=== PATIENT | female | born 1970 | race Caucasian/White ===

== ENCOUNTER 2020-06-18 14:48 | Inpatient (IN) | payer OTHER ==
[~2020-06-18] VITALS: Ht 152.4 cm; Wt 92.7 kg
[2020-06-18 14:52] VITALS: BP 136/88
[2020-06-18 16:51] LABS: CALCIUM 8.4 mg/dL (8.5-10.1); CREATININE 0.8 mg/dL (0.6-1.3); HEMATOCRIT 43.9 % (37.0-47.0); HEMOGLOBIN 14.9 gm/dL (12.0-15.0); MCH 30.2 pg (26.0-34.0); MCHC 33.9 g/dL (28.0-37.0); MCV 89.1 fL (80.0-100.0); MPV 8.1 fl. (7.2-11.1); NUCLEATED RBCS 0 /100WBC; PLATELET COUNT* 322 thou/uL (150-400); POTASSIUM 3.9 mmol/L (3.5-5.1); RBC 4.93 mil/uL (4.20-5.00); WBC 18.9 thou/uL (4.0-11.0)
[2020-06-18 16:56] LABS: ALBUMIN 3.4 g/dL (3.4-5.0); TOTAL BILIRUBIN 0.3 mg/dL (<0.1-1.0); TOTAL PROTEIN 7.5 g/dL (6.4-8.2)
[2020-06-18 17:30] VITALS: BP 127/97
[2020-06-18 17:30] LABS: ABSOLUTE LYMPHOCYTES 2.6 thou/uL (0.8-5.3); ABSOLUTE NEUTROPHILS 16.3 thou/uL (1.6-8.1); PLATELET ESTIMATE ADEQUATE
[2020-06-18 17:50] VITALS: BP 141/86
[2020-06-18 19:51] VITALS: BP 129/84
[2020-06-19 05:04] VITALS: BP 129/84
[2020-06-19 08:40] VITALS: BP 132/82
[2020-06-19 16:00] VITALS: BP 124/86
[2020-06-19 16:55] VITALS: BP 142/78
[2020-06-19 20:30] VITALS: BP 134/74
[2020-06-20 03:05] LABS: GLYCOHEMOGLOBIN (HGB A1C) 8.5 % (4.8-5.6)
[2020-06-20 04:03] LABS: HEMATOCRIT 38.7 % (37.0-47.0); MCH 29.9 pg (26.0-34.0); MCV 90.6 fL (80.0-100.0); RBC 4.28 mil/uL (4.20-5.00); RDW-CV 12.8 % (10.5-14.5); WBC 17.5 thou/uL (4.0-11.0)
[2020-06-20 04:25] LABS: HEMOGLOBIN 12.8 gm/dL (12.0-15.0)
[2020-06-20 04:30] VITALS: BP 165/79
[2020-06-20 04:31] LABS: CALCIUM 8.3 mg/dL (8.5-10.1); CREATININE 0.7 mg/dL (0.6-1.3); MAGNESIUM 1.9 mg/dL (1.8-2.4); POTASSIUM 3.9 mmol/L (3.5-5.1)
[2020-06-20 07:20] VITALS: BP 135/78
[2020-06-20 13:10] VITALS: BP 132/78
[2020-06-20 16:21] VITALS: BP 124/73
[2020-06-20 19:40] VITALS: BP 148/70
[2020-06-21] VITALS (8 sets, daily range): BP systolic 106–145; BP diastolic 79–94
[2020-06-21] MEDS ORDERED: ELIQUIS2.5 MG PO ×2 (06:47→07:28)
[2020-06-21] MEDS ORDERED: VITAMIN D3-CAL1 EACH PO (07:29)
[2020-06-21] MEDS ORDERED: OXYCODONE HCL 55 MG PO (07:49)
[2020-06-21] MEDS ORDERED: GLUCOPHAGE500 MG PO (07:49)
[2020-06-21] MEDS ORDERED: GLUCOPHAGE850 MG PO (07:51)
[2020-06-21] MEDS ORDERED: FREESTYLE LANC1 EACH MISCELL (07:56)
[2020-06-21] MEDS ORDERED: HUMULINR100 SUBQ (07:56)
[2020-06-21] MEDS ORDERED: INSULIN SYRING1 EA13 SUBQ (07:56)
--- NOTE | 2020-06-21 11:28 | EKG ---
[place] [address] ELECTROCARDIOGRAM REPORT Name: GURDEEP GIORDANO Room: [address] ADM IN ..#: [id number] Admission: 06/18/20 Attend Phys: Neftali Salazar, Discharge: Date of : 70 Date of Service: 06/18/20 1709 Report #: [id number] THIS REPORT FOR: //name// [facility] ED Test Date: 2020-06-18 Test Time: 17:09:34 Pat Name: GURDEEP GIORDANO Department: Room: [facility] Gender: F Clinic Charge Nurse: : 1970 Requested By: Luisito Fernandez Order Number: [id number] MD: Chico Becerra Measurements Intervals [place] Rate: 98 P: 45 ME: 177 QRS: 3 QRSD: 97 T: 16 QT: 365 QTc: 467 Interpretive Statements Sinus rhythm Probable left atrial enlargement No previous ECG available for comparison Electronically Signed On 06-21-2020 11:28:32 CONTACT CENTER ASSOCIATE by Chico Becerra [email or web address] <ELECTRONICALLY SIGNED> By: Chico Becerra MD, [facility] 06/21/20 1128 1709 08 Chico Becerra MD, FAC /EPI
[2020-06-22] VITALS: BP 112/61
[2020-06-22 04:00] VITALS: BP 124/68
[2020-06-22 08:30] VITALS: BP 122/65
[2020-06-22 09:42] LABS: CALCIUM 8.3 mg/dL (8.5-10.1); CREATININE 0.7 mg/dL (0.6-1.3); MAGNESIUM 1.8 mg/dL (1.8-2.4); POTASSIUM 3.5 mmol/L (3.5-5.1)
[2020-06-22 12:33] VITALS: BP 134/77
--- NOTE | 2020-06-22 12:56 | CON ---
[address] [address] CONSULTATION Name: GURDEEP GIORDANO Room: [address] IN .R.#: [id number] Admission: 06/18/20 Attend Phys: Neftali Salazar MD Discharge: Date of : 70 Report #: [id number] THIS REPORT FOR: //name// cc: Rizwana Bender MD, Ghazal A. MD ~ CARDIOLOGY CONSULTATION INDICATION: New onset atrial fibrillation. HISTORY OF PRESENT ILLNESS: The patient is a very pleasant 49-year-old white female with no prior history of atrial fibrillation. She was admitted to the hospital on the with tibia and fibula fracture on the left after falling down some stairs. She had no significant medical history prior to this admission. On admission, she is found to be diabetic and has been treated for this. Yesterday, she had an episode of palpitations and slight chest discomfort. Vital signs revealed a rapid heart rate. EKG revealed atrial fibrillation with a rapid ventricular response rate. The patient was not significantly symptomatic, but did notice some slight palpitations. She does recall possibly having symptoms similar to this in the past, but nothing that was long in duration. Cardiac risk factors include diabetes and family history of coronary artery disease. She is not a smoker. There is no history of hypertension. Lipid status is pending. Her CHADS score is 1 based on diabetes. PAST MEDICAL HISTORY: 1. Gastroesophageal reflux. 2. Anxiety. 3. History of tubal ligation. 4. History of diverticulitis. MEDICATIONS: None. ALLERGIES: None. FAMILY HISTORY: Heart disease and diabetes. SOCIAL HISTORY: Lifelong nonsmoker. She does not drink alcohol. REVIEW OF SYSTEMS: A 14-point review of systems as per HPI, otherwise unremarkable. PHYSICAL EXAMINATION: VITAL SIGNS: Blood pressure 124/68, pulse currently 73 and regular. GENERAL: This is a pleasant young lady in no distress. Mood and affect appropriate. HEENT: Extraocular muscles intact. [place] [address] CONSULTATION Name: GURDEEP GIORDANO Melody Room: [address] IN ..#: [id number] Admission: 06/18/20 Attend Phys: Neftali Salazar MD Discharge: Date of : 70 Report #: [id number] NECK: Shows no jugular venous distention. There are no carotid bruits. CHEST: Reveals clear lung garcia without wheezes or rales. CARDIOVASCULAR: Reveals a regular rhythm with normal S1 and S2. I do not appreciable gallop or murmur. ABDOMEN: Reveals normal bowel sounds. The abdomen is soft and nontender. EXTREMITIES: Left lower extremity splinted. No obvious edema. SKIN: Dry. LABORATORY DATA: A 12-lead EKG during the event shows atrial fibrillation with rapid ventricular response rate. EKG subsequently shows sinus rhythm without acute ST or T-wave abnormality. Labs are reviewed. Sodium 135, potassium 3.5, chloride 102, bicarbonate 24, BUN 10, creatinine 0.7, serum glucose 214. LFTs are within normal limits. Hemoglobin A1c 8.5. White blood cell count 17.5, hemoglobin 12.8, platelet count 280,000. IMPRESSION AND RECOMMENDATIONS: 1. New onset atrial fibrillation with rapid ventricular response rate. The patient has converted to sinus rhythm on diltiazem alone. I would continue oral diltiazem at this time. I do not see need for antiarrhythmic agents at this time. The patient's CHADS score is 1. Based on this, I believe she would benefit from long-term anticoagulation. Agree with Eliquis 5 mg twice daily. An echocardiogram will be ordered for tomorrow. 2. Diabetes per hospitalist. 3. Probable hyperlipidemia. We will check fasting lipid profile. Would recommend goal LDL of 70 or less. 4. Cardiac risk factors include family history of coronary artery disease and diabetes. We will consider coronary calcium score. At this point, she appears stable from a cardiac standpoint. I will arrange for followup through our office after her insurance status is clarified. <ELECTRONICALLY SIGNED> By: Shai Crabtree MD, FACC 06/22/20 1256 1108 [id number] Crabtree MD, FACC /nt
[2020-06-22 16:34] VITALS: BP 130/73
[2020-06-22 20:00] VITALS: BP 134/84
[2020-06-23] VITALS: BP 132/82
[2020-06-23 04:00] VITALS: BP 124/82
[2020-06-23 05:16] LABS: CHOLESTEROL 158 mg/dL (<200); HDL CHOLESTEROL 27 mg/dL (>40); LDL CHOLESTEROL 110 mg/dL (<100); TC:HDL 5.9 Ratio (Not establshd); TRIGLYCERIDE 107 mg/dL (<150); VLDL 21 mg/dL (<40)
[2020-06-23 05:26] LABS: SERUM ASSESSMENT CLEAR
--- NOTE | 2020-06-23 06:39 | OP ---
[address] [address] OPERATIVE REPORT Name: GURDEEP GIORDANO Room: [address] IN M.R.#: [id number] Admission: 06/18/20 Attend Phys: Neftali Salazar MD Discharge: Date of : 70 Report #: [id number] THIS REPORT FOR: //name// cc: Rizwana Bender MD, Ghazal A. MD ~ CC: Rizwana Salazar DICTATED BY: Isaiah Jameson DO DATE OF SERVICE: 06/19/2020 PREOPERATIVE DIAGNOSIS: Left distal one-third tibia and fibula fracture. POSTOPERATIVE DIAGNOSIS: Left distal one-third tibia and fibula fracture. PROCEDURE PERFORMED: Left distal one-third open reduction with intramedullary nail insertion of the tibia. SURGEON: Chico Zuniga DO. ASSISTANTS: 1. Isaiah Jameson DO. 2. Brayden Li DO. 3. Ritchie Valdes DO. ESTIMATED BLOOD LOSS: 50 mL. ANTIBIOTICS: 2 grams Ancef. COMPLICATIONS: None. TOURNIQUET TIME: None. ANESTHESIA: General. CONDITION OF PATIENT: Stable to PACU. INDICATIONS FOR PROCEDURE: The patient is a pleasant 49-year-old female who was walking down her stairs on 06/18 and she landed awkwardly on the left foot, noted immediate deformity and inability to bear weight. She was taken to [facility] for evaluation, in which radiographs showed a distal one-third tibia and fibula fracture. She was splinted, placed n.p.o. after midnight for surgical fixation. Recommendation was made for intramedullary nail fixation of the tibia. We discussed the alternatives, benefits and risks including but not limited to damage to neurovascular structures, [place] [address] OPERATIVE REPORT Name: GIULIANAGURDEEP Room: [address] IN [facility]#: [id number] Admission: 06/18/20 Attend Phys: Neftali Salazar MD Discharge: Date of : 70 Report #: [id number] pain, possible need for repeat surgery in the future, delayed union, malunion or nonunion, hardware prominence and any other imponderables secondary to being placed under general anesthesia such as DVT, pulmonary embolism, AK or sudden . The patient expressed understanding of the aforementioned and was agreed to proceed. DESCRIPTION OF PROCEDURE: The patient was met in the preoperative bay where the correct side was marked. She was then taken back to the operative suite and placed supine on a Shun flat radiolucent table. She was given the benefit of general anesthesia. The left lower extremity was sterilely prepped and draped with a bump under the left hip and left lower extremity elevated on bone foam. A timeout was performed, in which correct patient, side, site, procedure to be performed and antibiotics in the form of 2 g Ancef being administered was agreed upon by all participation. An incision was made at the superior aspect of the patella for suprapatellar nail insertion. The incision was taken down through the skin and subcutaneous tissues. A longitudinal incision to the quadriceps was made. The insertion sleeve was placed through the knee to the superior aspect of the tibia. Starting guidewire was inserted after correct starting point verification on the AP and lateral films. The opening reamer was then taken down to the positive stop. Attention was then taken down to the fracture site, while the guidewire was being advanced up to the fracture site. Appropriate reduction of the fracture site was performed with 2 small medial and lateral incisions and percutaneous clamping along with the assistance of manual reduction. Guidewire was advanced. Subsequent flexible reamers were taken down through the intramedullary canal to a size 11.5. A size 10 nail was inserted. Under perfect washoe technique, the three distal tibial locking screws were inserted followed by 2 proximal with the interlocking jig. Decision was made to place a 10 mm encap on the nail. This fit appropriately. I did not have any excessive prominence to the proximal part of the tibia. Final radiographs displaying appropriate length, alignment, rotation of the fracture site was confirmed. All wounds were thoroughly irrigated and lavaged. The quadriceps tendon/arthrotomy was closed in a layered fashion with a 0 Vicryl, subcutaneous stitches and then Monocryl subdermal glue. Remainder of the incisions were thoroughly irrigated and closed in layered fashion as well with simple nylons. Xeroform, 4 x 4's, and a compressive soft roll and Serge wrap were applied to the left lower extremity. The patient was awoken from general anesthesia and taken to the postanesthesia care unit in stable condition. She will be started on Eliquis 2.5 b.i.d. postoperative day 1. She will be 50% weightbearing to left lower extremity until further notice. <ELECTRONICALLY SIGNED> By: Ziggy Cano DO 06/23/20 0639 1156 [id number] Zuniga DO /yung
[2020-06-23 07:30] VITALS: BP 115/40
[2020-06-23] MEDS ORDERED: DILTIAZEM 24HR180 M1 PO (08:52)
[2020-06-23] MEDS ORDERED: HUMULINR100 SUBQ (08:52)
[2020-06-23] MEDS ORDERED: ELIQUIS5 MG PO (08:52)
[2020-06-23] MEDS ORDERED: ATORVASTATIN CA20 MG PO (08:52)
[2020-06-23 11:30] VITALS: BP 129/83
--- NOTE | 2020-06-23 12:23 | EKG ---
[place] [address] ELECTROCARDIOGRAM REPORT Name: GURDEEP GIORDANO Room: [address] ADM IN ..#: [id number] Admission: 06/18/20 Attend Phys: Neftali Salazar, Discharge: Date of : 70 Date of Service: 06/21/202007 Report #: [id number] THIS REPORT FOR: //name// [facility] Test Date: 2020-06-21 Test Time: 20:08:45 Pat Name: GURDEEP GIORDANO Department: Room: [address] Gender: F [employer] Director: : 1970 Requested By: Neftali Salazar Order Number: [id number] Corona MD: Chico Becerra Measurements Intervals [place] Rate: 159 P: [place]: QRS: 28 QRSD: 92 T: 23 QT: 291 QTc: 474 Interpretive Statements Atrial fibrillation Compared to ECG 06/18/2020 17:09:34 Sinus rhythm no longer present Electronically Signed On 06-23-2020 12:22:54 GPS NAVIGATION INSTALLER by Chico Becerra [email or web address] <ELECTRONICALLY SIGNED> By: Chico Becerra MD, [facility] 06/23/20 1222 07 07 Chico Becerra MD, [facility] /EPI
--- NOTE | 2020-06-23 15:11 | 2DMMODE ---
[place] [address] 2 D/M-MODE ECHOCARDIOGRAM Name: GURDEEP GIORDANO Room: [address] IN ..#: [id number] Admission: 06/18/20 Attend Phys: Neftali Salazar, Discharge: Date of : 70 Date of Service: 06/23/20 1511 Report #: [id number] THIS REPORT FOR: cc: Rizwana Bender MD, Ghazal A. MD Blick,Chico Garay MD [facility] ~ APPROVED REPORT Study performed: 06/23/2020 10:03:33 EXAM: Comprehensive 2D, Doppler, and color-flow Echocardiogram Patient Location: In-Patient Room #: [facility] Status: routine BSA: 1.88 HR: 76 bpm BP: 124/82 mmHg Rhythm: NSR Other Information Study Quality: Good Indications Atrial Fibrillation 2D Dimensions IVSd: 11.90 (7-11mm) LVOT Diam: 18.88 (18-24mm) LVDd: 38.12 mm PWd: 9.16 (7-11mm) Ascending Ao: 29.19 (22-36mm) LVDs: 24.16 (25-40mm) Aortic Root: 33.71 mm Volumes Left Atrial Volume (Systole) LA ESV Index: 18.70 mL/m2 Aortic Valve AoV Peak Nikhil.: 1.45 m/s AO Peak Gr.: 8.46 mmHg LVOT Max P.97 mmHg AO Mean Gr.: 4.81 mmHg LVOT Mean P.83 mmHg LVOT Max V: 1.50 m/s AO V2 VTI: 22.63 cm LVOT Mean V: 0.88 m/s DILLON (VTI): 2.96 cm2 LVOT V1 VTI: 23.92 [place] [address] 2 D/M-MODE ECHOCARDIOGRAM Name: GURDEEP GIORDANO Room: [address] IN ..#: [id number] Admission: 06/18/20 Attend Phys: Neftali Salazar, Discharge: Date of : 70 Date of Service: 06/23/20 1511 Report #: [id number] Mitral Valve E/A Ratio: 1.01 MV Decel. Time: 285.93 ms MV E Max Nikhil.: 0.57 m/s MV PHT: 82.92 ms MVA (PHT): 2.65 cm2 TDI E/Lateral E': 3.80 E/Medial E': 7.13 Medial E' Nikhil.: 0.08 m/s Lateral E' Nikhil.: 0.15 m/s Pulmonary Valve PV Peak Nikhil.: 1.05 m/s PV Peak Gr.: 4.45 mmHg Left Ventricle The left ventricle is normal size. There is normal LV segmental wall motion. There is normal left ventricular wall thickness. Left ventricular systolic function is normal. The left ventricular ejection fraction is within the normal range. LVEF is 60-65%. The left ventricular diastolic function is normal. Right Ventricle The right ventricle is normal size. The right ventricular systolic function is normal. Atria The left atrium size is normal. The right atrium size is normal. Aortic Valve The aortic valve is normal in structure. No aortic regurgitation is present. There is no aortic valvular stenosis. Mitral Valve The mitral valve is normal in structure. There is no mitral valve regurgitation noted. No evidence of mitral valve stenosis. Tricuspid Valve The tricuspid valve is normal in structure. Unable to assess PA pressure. Trace tricuspid regurgitation. Pulmonic Valve The pulmonary valve is normal in structure. Mild [place] [address] 2 D/M-MODE ECHOCARDIOGRAM Name: GURDEEP GIORDANO Room: [address] IN [facility]#: [id number] Admission: 06/18/20 Attend Phys: Neftali Salazar, Discharge: Date of : 70 Date of Service: 06/23/20 1511 Report #: [id number] Great Vessels The aortic root is normal in size. IVC is normal in size and collapses >50% with inspiration. Pericardium There is no pericardial effusion. <Conclusion> Left ventricular systolic function is normal. The left ventricular ejection fraction is within the normal range. <ELECTRONICALLY SIGNED> By: Chico Becerra MD, FACC 06/23/201510 10 10 Chico Becerra MD, FACC /INF
[2020-06-23 16:52] VITALS: BP 126/80
== END 2020-06-23 17:40 | disposition home or self-care (01) | DRG 493 ==
LOC: M.ERS 14:48 → M.TBA-ER 16:28 → M.3W 16:28 → M.2W 06-21 21:16
PROVIDERS: Emergency Medicine Emergency Medical Services; Internal Medicine Cardiovascular Disease; ADMIT Internal Medicine; ATTEND Internal Medicine
PROC: 5A09357 Assistance with Respiratory Ventilation, Less than 24 Consecutive Hours, Continuous Positive Airway Pressure (ICD-10-PCS; principal; 2020-06-19)
PROC: 0QSH06Z Reposition Left Tibia with Intramedullary Internal Fixation Device, Open Approach (ICD-10-PCS; principal; 2020-06-19)
DX: S82.392A Other fracture of lower end of left tibia, initial encounter for closed fracture (principal); I48.20 Chronic atrial fibrillation, unspecified; S82.452A Displaced comminuted fracture of shaft of left fibula, initial encounter for closed fracture; K21.9 Gastro-esophageal reflux disease without esophagitis; F41.9 Anxiety disorder, unspecified; I25.10 Atherosclerotic heart disease of native coronary artery without angina pectoris; E78.5 Hyperlipidemia, unspecified; E66.9 Obesity, unspecified; E11.65 Type 2 diabetes mellitus with hyperglycemia; W10.8XXA Fall (on) (from) other stairs and steps, initial encounter; E55.9 Vitamin D deficiency, unspecified; Z20.828 Contact with and (suspected) exposure to other viral communicable diseases; Z68.39 Body mass index [BMI] 39.0-39.9, adult; Y93.89 Activity, other specified; Y92.89 Other specified places as the place of occurrence of the external cause; Y99.8 Other external cause status; Z23 Encounter for immunization

== ENCOUNTER 2020-10-06 22:12 | Inpatient (IN) | payer OTHER ==
[~2020-10-06] VITALS: Ht 152.4 cm; Wt 83.1 kg
[~2020-10-06 22:12] MED LIST: ATORVASTATIN CA20 MG PO; DILTIAZEM 24HR180 M1 PO; ELIQUIS2.5 MG PO; ELIQUIS5 MG PO; FREESTYLE LANC1 EACH MISCELL; GLUCOPHAGE500 MG PO; GLUCOPHAGE850 MG PO; HUMULINR100 SUBQ; INSULIN SYRING1 EA13 SUBQ; OXYCODONE HCL 55 MG PO; VITAMIN D3-CAL1 EACH PO
[2020-10-06 22:18] VITALS: BP 142/79
[2020-10-06 22:25] LABS: URINE BILIRUBIN NEGATIVE (Negative); URINE BLOOD NEGATIVE (Negative); URINE CLARITY CLEAR; URINE COLOR YELLOW; URINE GLUCOSE-RANDOM NEGATIVE (Negative); URINE KETONES NEGATIVE (Negative); URINE LEUKOCYTES-REFLEX NEGATIVE (Negative); URINE NITRITE-REFLEX NEGATIVE (Negative); URINE PROTEIN NEGATIVE (Negative); URINE UROBILINOGEN 0.2 E.U./dl (0.2-1.0)
[2020-10-06 22:56] LABS: ABSOLUTE BASOPHILS 0.1 thou/uL (0.0-0.2); ABSOLUTE EOSINOPHILS 0.3 thou/uL (0.0-0.7); ABSOLUTE MONOCYTES 0.9 thou/uL (0.0-1.2); ABSOLUTE NEUTROPHILS 13.1 thou/uL (1.6-8.1); BASOPHILS 0.5 %; EOSINOPHILS 1.7 %; HEMATOCRIT 42.7 % (37.0-47.0); HEMOGLOBIN 14.2 gm/dL (12.0-15.0); LYMPHOCYTES 12.4 %; MCH 28.4 pg (26.0-34.0); MCHC 33.2 g/dL (28.0-37.0); MCV 85.5 fL (80.0-100.0); MONOCYTES 5.4 %; MPV 7.4 fl. (7.2-11.1); NUCLEATED RBCS 0 /100WBC; PLATELET COUNT* 363 thou/uL (150-400); RBC 4.99 mil/uL (4.20-5.00); RDW-CV 13.2 % (10.5-14.5); WBC 16.4 thou/uL (4.0-11.0)
[2020-10-06 23:01] LABS: CALCIUM 9.1 mg/dL (8.5-10.1)
[2020-10-06 23:06] LABS: ALBUMIN 3.3 g/dL (3.4-5.0); TOTAL BILIRUBIN 0.4 mg/dL (<0.1-1.0); TOTAL PROTEIN 7.7 g/dL (6.4-8.2)
[2020-10-07] VITALS (7 sets, daily range): BP systolic 109–130; BP diastolic 74–85
[2020-10-07 10:05] LABS: CHOLESTEROL 124 mg/dL (<200); HDL CHOLESTEROL 45 mg/dL (>40); LDL CHOLESTEROL 68 mg/dL (<100); TC:HDL 2.8 Ratio (Not establshd); TRIGLYCERIDE 55 mg/dL (<150); VLDL 11 mg/dL (<40)
[2020-10-07 10:09] LABS: SERUM ASSESSMENT Clear
--- NOTE | 2020-10-07 12:21 | EKG ---
[place] [address] ELECTROCARDIOGRAM REPORT Name: GIULIANAGURDEEP Melody Room: [address] ADM IN M.R.#: [id number] Admission: 10/07/20 Attend Phys: [place] Discharge: Date of : 70 Date of Service: 10/07/20 0058 Report #: [id number] THIS REPORT FOR: //name// [facility] ED Test Date: 2020-10-07 Test Time: 00:58:21 Pat Name: GURDEEP GIORDANO Department: Room: [facility] Gender: F Cpc Coder: : 1970 Requested By: Tarah Harrington Order Number: [id number] MD: Shai Crabtree Measurements Intervals [place] Rate: 70 P: 36 ME: 190 QRS: 18 QRSD: 95 T: 25 QT: 394 QTc: 426 Interpretive Statements Sinus rhythm Compared to ECG 06/21/2020 20:08:45 Atrial fibrillation no longer present Electronically Signed On 10-07-2020 12:21:44 CDT by Shai Crabtree [email or web address] <ELECTRONICALLY SIGNED> By: Shai Crabtree MD, FACC 10/07/20 1221 0058 0058 Shai Crabtree MD, FAC /EPI
[2020-10-08 04:15] VITALS: BP 122/84
[2020-10-08 04:47] LABS: ABSOLUTE EOSINOPHILS 0.2 thou/uL (0.0-0.7); ABSOLUTE LYMPHOCYTES 2.2 thou/uL (0.8-5.3); ABSOLUTE MONOCYTES 0.5 thou/uL (0.0-1.2); ABSOLUTE NEUTROPHILS 6.6 thou/uL (1.6-8.1); BASOPHILS 0.5 %; EOSINOPHILS 2.5 %; HEMATOCRIT 41.3 % (37.0-47.0); HEMOGLOBIN 13.3 gm/dL (12.0-15.0); LYMPHOCYTES 23.3 %; MCH 27.7 pg (26.0-34.0); MCHC 32.3 g/dL (28.0-37.0); MCV 85.7 fL (80.0-100.0); MONOCYTES 4.9 %; MPV 7.7 fl. (7.2-11.1); NUCLEATED RBCS 0 /100WBC; PLATELET COUNT* 309 thou/uL (150-400); POLYS 68.8 %; RBC 4.81 mil/uL (4.20-5.00); WBC 9.6 thou/uL (4.0-11.0)
[2020-10-08 05:06] LABS: CALCIUM 8.6 mg/dL (8.5-10.1); CREATININE 0.6 mg/dL (0.6-1.3); POTASSIUM 3.5 mmol/L (3.5-5.1)
[2020-10-08 08:00] VITALS: BP 129/80
[2020-10-08 12:16] VITALS: BP 113/79
[2020-10-08 15:53] VITALS: BP 114/76
[2020-10-08 21:02] VITALS: BP 127/72
[2020-10-09] VITALS: BP 124/73
[2020-10-09 04:00] VITALS: BP 131/68
[2020-10-09 04:45] LABS: ABSOLUTE BASOPHILS 0.1 thou/uL (0.0-0.2); ABSOLUTE EOSINOPHILS 0.3 thou/uL (0.0-0.7); ABSOLUTE LYMPHOCYTES 2.6 thou/uL (0.8-5.3); ABSOLUTE MONOCYTES 0.6 thou/uL (0.0-1.2); ABSOLUTE NEUTROPHILS 7.4 thou/uL (1.6-8.1); BASOPHILS 0.6 %; EOSINOPHILS 2.8 %; HEMATOCRIT 41.3 % (37.0-47.0); HEMOGLOBIN 13.5 gm/dL (12.0-15.0); LYMPHOCYTES 23.8 %; MCH 27.9 pg (26.0-34.0); MCHC 32.8 g/dL (28.0-37.0); MCV 85.1 fL (80.0-100.0); MONOCYTES 5.8 %; MPV 7.8 fl. (7.2-11.1); NUCLEATED RBCS 0 /100WBC; PLATELET COUNT* 321 thou/uL (150-400); RBC 4.85 mil/uL (4.20-5.00); RDW-CV 13.2 % (10.5-14.5); WBC 11.1 thou/uL (4.0-11.0)
[2020-10-09 05:05] LABS: ALBUMIN 2.9 g/dL (3.4-5.0); CREATININE 0.7 mg/dL (0.6-1.3); POTASSIUM 3.5 mmol/L (3.5-5.1); TOTAL BILIRUBIN 0.4 mg/dL (<0.1-1.0); TOTAL PROTEIN 6.8 g/dL (6.4-8.2)
[2020-10-09 08:19] VITALS: BP 137/84
[2020-10-09 11:22] VITALS: BP 137/84
== END 2020-10-09 11:55 | disposition home or self-care (01) | DRG 439 ==
LOC: M.ERS 22:12 → M.2W 10-07 00:50 → M.TBA-ER 10-07 00:50 → M.2W 10-07 01:34
PROVIDERS: Emergency Medicine; Internal Medicine; Nurse Practitioner Adult Health; ADMIT Family Medicine; ATTEND Family Medicine
DX: K85.00 Idiopathic acute pancreatitis without necrosis or infection (principal); R65.10 Systemic inflammatory response syndrome (SIRS) of non-infectious origin without acute organ dysfunction; Z20.822 Contact with and (suspected) exposure to COVID-19; E11.9 Type 2 diabetes mellitus without complications; I48.91 Unspecified atrial fibrillation; E66.9 Obesity, unspecified; K59.00 Constipation, unspecified; Z68.35 Body mass index [BMI] 35.0-35.9, adult; Z90.49 Acquired absence of other specified parts of digestive tract; Z79.899 Other long term (current) drug therapy